=== PATIENT | female | born 1960 | race Caucasian/White ===

== ENCOUNTER 2017-03-29 15:24 | Emergency (ER) | payer OTHER ==
[2017-03-29 15:29] VITALS: BP 153/96; PULSE 90; TEMP 98.3; BMI 24.3
[2017-03-29] MEDS ORDERED: KETOROLAC TROMETHAMINE 60 MG/2 ML VIAL IM ONE (15:49)
[2017-03-29] MEDS ORDERED: KETOROLAC TROMETHAMINE 60 MG/2 ML VIAL ONE (15:51)
--- NOTE | 2017-03-29 16:04 | PDOC ---
History of Present Illness - General Chief Complaint: Sore Throat Stated Complaint: THROAT PAIN Time Seen by Provider: 03/29/17 15:32 History Source: Patient Exam Limitations: No Limitations - History of Present Illness Initial Comments: 03/29/17 15:50 Patient is a [56-year-old female, History of depression, presents to the ER with painful lesions to the posterior pharynx for 6 days. Was seen at the ENT was told it was viral. Concerned because it is persisting and not getting better, able to eat and drink. No fever. ] Past Medical History: [Denies]. Allergies: No known allergies Medications: [see medication list] Family History: Non-contributory Social History: Denies smoking, alcohol use, or IVDU Review of Systems GENERAL/CONSTITUTIONAL: [No fever or chills. No weakness. No weight change.] HEAD, EYES, EARS, NOSE AND THROAT: [No change in vision. No ear pain or discharge. Lesions to right lateral tongue and posterior pharynx] CARDIOVASCULAR: [No chest pain or shortness of breath.] RESPIRATORY: [No cough, wheezing, or hemoptysis.] GASTROINTESTINAL: [No nausea, vomiting, diarrhea or constipation. No rectal bleeding.] GENITOURINARY: [No dysuria, frequency, or change in urination.] MUSCULOSKELETAL: [No joint or muscle swelling or pain. No neck or back pain.] SKIN AND BREASTS: [No rash or easy bruising.] NEUROLOGIC: [No headache, vertigo, loss of consciousness, or loss of sensation.] PSYCHIATRIC: [No depression or anxiety.] ENDOCRINE: [No increased thirst. No abnormal weight change.] HEMATOLOGIC/LYMPHATIC: [No anemia, easy bleeding, or history of blood clots.] ALLERGIC/IMMUNOLOGIC: [No hives or skin allergy. No latex allergy.] Physical Exam: GENERAL: [The patient is awake, alert, and fully oriented, in no acute distress. ] HEAD: [Normal with no signs of trauma.] EYES: [Pupils equal, round and reactive to light, extraocular movements intact, sclera anicteric, conjunctiva clear.] ENT: [Ears normal, nares patent, oropharynx without erythema, there are vesicular lesions to left lateral soft palate and right lateral tongue. Moist mucous membranes. No uvula deviation] NECK: [Normal range of motion, supple without lymphadenopathy, JVD, or masses.] LUNGS: [Breath sounds equal, clear to auscultation bilaterally. No wheezes, and no crackles.] HEART: [Regular rate and rhythm, normal S1 and S2 without murmur, rub or gallop. ] ABDOMEN: [Soft, nontender, normoactive bowel sounds. No guarding, no rebound. No masses. No bruising or abrasions] MUSCULOSKELETAL: [Normal range of motion, no edema. No clubbing or cyanosis. No cords, erythema, or tenderness. No CVA Tenderness with fist.] NEUROLOGICAL: [Cranial nerves II through XII grossly intact. Normal speech, normal gait.] SKIN: [Warm, Dry, normal turgor, no rashes or lesions noted.] 03/29/17 15:53 Past History - Past Medical History Allergies/Adverse Reactions: Allergies Allergy/AdvReac Type Severity Reaction Status Date / Time No Known Drug Allergies Allergy Verified 03/29/17 15:29 Home Medications: Ambulatory Orders BUPROPion HCL "SR" [Wellbutrin Sr -] 150 mg PO DAILY 03/02/13 Fluoxetine HCl [Prozac -] 20 mg PO DAILY 03/02/13 Omeprazole [Prilosec (RX)] 20 mg PO DAILY 03/02/13 Mag Hydrox/Alh/Smc/Dpha/Lido [Magic Mouthwash *Sjr Formula* -] 5 ml MM Q6HPO # 100 ml 03/29/17 Anemia: No Asthma: No Cancer: No Cardiac Disorders: No CVA: No COPD: No CHF: No DVT: No Dementia: No Diabetes: No GI Disorders: Yes (GERD) Disorders: No HTN: No Hypercholesterolemia: No Liver Disease: No Psychiatric Problems: Yes (depression) Seizures: No Thyroid Disease: No - Surgical History Appendectomy: Yes - Suicide/Smoking/Psychosocial Hx Smoking Status: No Smoking History: Never smoked Have you smoked in the past 12 months: No Number of Cigarettes Smoked Daily: 0 Hx Alcohol Use: Yes (SOCIAL) Drug/Substance Use Hx: No Hx Substance Use Treatment: No *Physical Exam - Vital Signs Last Vital Signs Temp Pulse Resp BP Pulse Ox 98.3 F 90 20 153/96 98 03/29/17 15:26 03/29/17 15:26 03/29/17 15:26 03/29/17 15:26 03/29/17 15:26 Medical Decision Making - Medical Decision Making 03/29/17 16:04 A/P: Patient here for evaluation of painful lesions in mouth, clinical findings highly suspicious for viral illness, suspicious for coxsackie wrist. Patient states pain is 10 out of 10 given Toradol injection DC patient home, supportive care, Motrin for fever, magic mouthwash for comfort. Follow-up with the dental I discussed the physical exam findings, ancillary test results and final diagnoses with the patient. I answered all of the patient's questions. The patient was satisfied with the care received and felt comfortable with the discharge plan and treatment plan. The patient will call to arrange follow-up and will return to the Emergency Department with any new, persistent or worsening symptoms. *DC/Admit/Observation/Transfer Diagnosis at time of Disposition: Oral mucosal lesion - Discharge Dispostion Disposition: HOME Condition at time of disposition: Good Admit: No - Prescriptions Prescriptions: Mag Hydrox/Alh/Smc/Dpha/Lido [Magic Mouthwash *Sjr Formula* -] 5 ml MM Q6HPO # 100 ml - Referrals - Patient Instructions Additional Instructions: Warm saltwater gargles, recommend follow-up with dental for evaluation if symptoms persist If Fever, unable to drink, or any other concerns return to ER - Post Discharge Activity Forms/Work/School Notes: Back to Work
== END 2017-03-29 16:14 | disposition home or self-care (01) ==
LOC: JERFT 15:24
PROC: 3E0233Z Introduction of Anti-inflammatory into Muscle, Percutaneous Approach (ICD-10-PCS; principal; 2017-03-29)
DX: K13.79 Other lesions of oral mucosa (principal); F32.9 Major depressive disorder, single episode, unspecified; K21.9 Gastro-esophageal reflux disease without esophagitis
CPT/HCPCS: 99281-25

== ENCOUNTER 2018-04-15 01:03 | Inpatient (IN) | payer OTHER ==
--- NOTE | 2018-04-15 01:34 | PDOC ---
History of Present Illness - General Chief Complaint: Pain, Acute Stated Complaint: ABD PAIN Time Seen by Provider: 04/15/18 01:30 - History of Present Illness Initial Comments: 04/15/18 03:59 57 year old female with Abdominal pain and cramping x 2 days and no bm x 2 days. feels like " acid burning up." " i feel like everything is backing up." patient reports prior to this incident having regular BMs. Since patient felt constipated patient has increased fiber and fluid intake. unable to pass flatus. denies NV, urinary symptoms fever/ chills. Past History - Past Medical History Allergies/Adverse Reactions: Allergies Allergy/AdvReac Type Severity Reaction Status Date / Time No Known Drug Allergies Allergy Verified 04/15/18 01:35 Home Medications: Ambulatory Orders BUPROPion HCL "SR" [Wellbutrin Sr -] 150 mg PO DAILY 03/02/13 Fluoxetine HCl [Prozac -] 20 mg PO DAILY 03/02/13 Omeprazole [Prilosec (RX)] 20 mg PO DAILY 03/02/13 Anemia: No Asthma: No Cancer: No Cardiac Disorders: No CVA: No COPD: No CHF: No DVT: No Dementia: No Diabetes: No GI Disorders: Yes (GERD) Disorders: No HTN: No Hypercholesterolemia: No Liver Disease: No Psychiatric Problems: Yes (depression) Seizures: No Thyroid Disease: No - Surgical History Appendectomy: Yes - Suicide/Smoking/Psychosocial Hx Smoking Status: No Smoking History: Never smoked Have you smoked in the past 12 months: No Number of Cigarettes Smoked Daily: 0 Hx Alcohol Use: Yes (SOCIAL) Drug/Substance Use Hx: No Hx Substance Use Treatment: No Review of Systems - Review of Systems Able to Perform ROS?: Yes Is the patient limited [place] proficient: No Constitutional: No: Symptoms Reported, See HPI, Chills, Diaphoresis, Fever, Loss of Appetite, Malaise, Night Sweats, Weakness, Weight Stable, Unintentional Wgt. Loss, Unexplained wgt Loss, Other ABD/GI: Yes: Abdominal cramping (reports instermittent cramping) *Physical Exam - Vital Signs 04/15/18 05:04 Vital Signs Temperature 98.0 F 04/15/18 01:36 Pulse Rate 89 04/15/18 01:36 Respiratory Rate 19 04/15/18 01:36 Blood Pressure 145/96 12/06/18 01:36 O2 Sat by Pulse Oximetry (%) 97 04/15/18 01:46 - Physical Exam General Appearance: Yes: Appropriately Dressed Respiratory/Chest: positive: Lungs Clear, Normal Breath Sounds Cardiovascular: positive: Regular Rhythm, Regular Rate Gastrointestinal/Abdominal: positive: Tender (generalized), Soft, Decreased BS Extremity: positive: Normal Capillary Refill, Normal Inspection Integumentary: positive: Normal Color, Dry, Warm Neurologic: positive: Fully Oriented, Alert ED Treatment Course - LABORATORY CBC & Chemistry Diagram: 04/16/18 06:15 04/16/18 06:15 Progress Note - Progress Note Progress Note: A: abdominal pain r/o SBO P: labs CTAP: SBO Medical Decision Making - Medical Decision Making 04/15/18 06:09 Dr. abdullahi consulted.recommends admission. 04/15/18 06:30 patient refusing NG tube. will treat pain, IVF npo. 04/15/18 06:40 Patient refused NG inserted. doesn't want me to proceed until seen by surgeon. advised the importance of NGT. 04/15/18 07:00 patient pending sign out to hospitalist for admission. patient signed out ER ARVIND Barillas 04/19/18 21:30 *DC/Admit/Observation/Transfer Diagnosis at time of Disposition: Small bowel obstruction Abdominal pain Qualifiers: Abdominal location: generalized Qualified Code(s): R10.84 - Generalized abdominal pain - Discharge Dispostion Disposition: HOME Condition at time of disposition: Improved Decision to Admit order: Yes - Referrals - Patient Instructions - Post Discharge Activity
[2018-04-15] MEDS ORDERED: ONDANSETRON 4 MG/2 ML VIAL IVPUSH ONE (02:06)
[2018-04-15] MEDS ORDERED: SODIUM CHLORIDE 1,000 ML IV STA (02:06)
[2018-04-15] MEDS ORDERED: FAMOTIDINE 20 MG/50 ML IVPB 20 MG/50 ML MG IVPB ONE ×2 (02:27→02:28)
[2018-04-15] MEDS ORDERED: ONDANSETRON 4 MG/2 ML VIAL ONE (02:28)
[2018-04-15 02:33] LABS: BASO % 0.4 % (0-2.0); EOS % 1.8 % (0-4.5); HEMATOCRIT 39.5 % (32.4-45.2); HEMOGLOBIN 13.9 GM/dL (10.7-15.3); LYMPH % 17.2 % (8-40); MCH 30.2 pg (25.7-33.7); MCHC 35.2 g/dl (32.0-36.0); MEAN PLT VOLUME 7.3 fl (7.5-11.1); MONO % 9.1 % (3.8-10.2); NEUT % 71.5 % (42.8-82.8); PLATELET COUNT 262 K/MM3 (134-434); RDW 16.1 % (11.6-15.6)
--- NOTE | 2018-04-15 02:51 | PDOC ---
*Physical Exam - Vital Signs Last Vital Signs Temp Pulse Resp BP Pulse Ox 98.0 F 89 19 145/96 97 04/15/18 01:36 04/15/18 01:36 04/15/18 01:36 04/15/18 01:36 04/15/18 01:46 ED Treatment Course - LABORATORY CBC & Chemistry Diagram: 04/15/18 02:20 04/15/18 02:20 - Medications Given in the ED: ED Medications Discontinued Medications Generic Name Dose Route Start Last Admin Trade Name Freq PRN Reason Stop Dose Admin Ondansetron HCl 4 mg 04/15/18 02:06 04/15/18 02:45 Zofran Injection IVPUSH 04/15/18 02:07 4 mg ONCE ONE Administration Medical Decision Making - Medical Decision Making 04/15/18 06:17 57F with 2 days of worsening abd px, no bm, no flatus, worsening reflux, no vomiting eval for SBO CT AP with air/fluid levels, transition in RUQ, SBO Admit, ngt to wall suction, surgery consultation *DC/Admit/Observation/Transfer Diagnosis at time of Disposition: Abdominal pain, Small bowel obstruction - Referrals Referrals: Fabiola Bender MD [Primary Care Provider] - - Patient Instructions - Post Discharge Activity
[2018-04-15 02:56] LABS: ALK PHOS 67 U/L (45-117); ANION GAP 8 MMOL/L (8-16); BILIRUBIN,TOTAL 0.5 mg/dL (0.2-1); BLOOD UREA NITROGEN 11 mg/dL (7-18); CALCIUM 9.4 mg/dL (8.5-10.1); CHLORIDE 100 mmol/L (98-107); CO2 31 mmol/L (21-32); CREATININE 0.8 mg/dL (0.55-1.3); GLUCOSE,RANDOM 94 mg/dL (74-106); LIPASE 132 U/L (73-393); POTASSIUM 3.7 mmol/L (3.5-5.1); SGOT/AST 27 U/L (15-37); SGPT/ALT 30 U/L (13-61); SODIUM 139 mmol/L (136-145); TOT PROT 7.3 g/dl (6.4-8.2)
[2018-04-15 03:10] LABS: URINE APPEARANCE CLEAR; URINE BILIRUBIN NEGATIVE (<2.0 mg/dL); URINE COLOR LTYELLOW; URINE GLUCOSE (UA) NEGATIVE (NEGATIVE); URINE KETONE NEGATIVE (NEGATIVE); URINE LEUK ESTERASE 1+ (NEGATIVE); URINE NITRITE NEGATIVE (NEGATIVE); URINE PROTEIN NEGATIVE (NEGATIVE); URINE UROBILINOGEN NEGATIVE mg/dL (0.2-1.0)
[2018-04-15 03:17] LABS: EPI CELLS RARE /HPF (FEW)
[2018-04-15] MEDS ORDERED: ACETAMINOPHEN 1000 MG/100 ML VIAL (NON FORMULARY) IVPB ONE (03:17)
[2018-04-15] MEDS ORDERED: morphine CARPU-JECT 4 MG/1 ML DISP.SYRIN IVPUSH ONE ×2 (03:37→06:11)
[2018-04-15] MEDS ORDERED: METOCLOPRAMIDE HCL INJECTION 10 MG/2 ML VIAL IVPB ONE (03:37)
[2018-04-15] MEDS ORDERED: ACETAMINOPHEN INJECTION 100 ML IVPB ONE (03:40)
[2018-04-15] MEDS ORDERED: METOCLOPRAMIDE HCL INJECTION 10 MG/2 ML VIAL ONE (03:40)
[2018-04-15] MEDS ORDERED: morphine SULFATE 4 MG/ML VIAL ONE ×2 (03:40→06:16)
[2018-04-15] MEDS ORDERED: SODIUM CHLORIDE 1,000 ML IV SCH (06:00)
[2018-04-15] MEDS ORDERED: TETRACAINE/BENZOCAINE/BUTAMBEN 20 GM SPR TP ONE (06:20)
[2018-04-15] MEDS ORDERED: ONDANSETRON 4 MG/2 ML VIAL IVPUSH PRN (08:21)
[2018-04-15] MEDS ORDERED: morphine CARPU-JECT 2 MG/1 ML DISP.SYRIN IVPUSH PRN (08:21)
[2018-04-15] MEDS ORDERED: ACETAMINOPHEN 1000 MG/100 ML VIAL (NON FORMULARY) IVPB PRN (08:32)
--- NOTE | 2018-04-15 08:35 | HP ---
CHIEF COMPLAINT: abdominal pain PCP: Dr. Bender HISTORY OF PRESENT ILLNESS: This is 57 year old female with a history of GERD, depression, appendicitis, s/ p appendectomy, who presents with nausea, diffuse abdominal pain, and no bowel movements for the past two days. Patient states that yesterday morning she ate breakfast, which included pork, greens beans and pasta, after became full and was not able to eat lunch or dinner. She endorses daily bowel movements with a high fiber diet, fruits and water. She drinks two glasses of wine per night. Denies withdrawal history Denies vomiting, fever, chills, dysuria, melena. She has had multiple endoscopies that showed "stomach polyps". She has never had a colonoscopy. ER course was notable for: Abdominal CT with po /iv contrast evident for partial SBO; possible locatio right upper quadrant anteriorly, may be representing volvulus Recent Travel: no PAST MEDICAL HISTORY: GERD, Depression, stomach polyps, PAST SURGICAL HISTORY: appendectomy, urterine fibroid ligation, tonsillectomy Social History: lives alone at home; not ; no kids Smoking:no Alcohol:2 glasses of wine per night xmany years Drugs: no Family History: Allergies No Known Drug Allergies Allergy (Verified 04/15/18 01:35) HOME MEDICATIONS: Home Medications Medication Instructions Recorded BUPROPion HCL "SR" [Wellbutrin Sr 150 mg PO DAILY 03/02/13 -] Fluoxetine HCl [Prozac -] 20 mg PO DAILY 03/02/13 Omeprazole [Prilosec (RX)] 20 mg PO DAILY 03/02/13 REVIEW OF SYSTEMS CONSTITUTIONAL: Absent: fever, chills, diaphoresis, generalized weakness, malaise, loss of appetite, weight change HEENT: Absent: rhinorrhea, nasal congestion, throat pain, throat swelling, difficulty swallowing, mouth swelling, ear pain, eye pain, visual changes CARDIOVASCULAR: Absent: chest pain, syncope, palpitations, irregular heart rate, lightheadedness , peripheral edema RESPIRATORY: Absent: cough, shortness of breath, dyspnea with exertion, orthopnea, wheezing, stridor, hemoptysis GASTROINTESTINAL: Positive: abdominal pain,abdominal distension, nausea Absent: , vomiting, diarrhea, constipation, melena, hematochezia GENITOURINARY: Absent: dysuria, frequency, urgency, hesitancy, hematuria, flank pain, genital pain MUSCULOSKELETAL: Absent: myalgia, arthralgia, joint swelling, back pain, neck pain SKIN: Absent: rash, itching, pallor HEMATOLOGIC/IMMUNOLOGIC: Absent: easy bleeding, easy bruising, lymphadenopathy, frequent infections ENDOCRINE: Absent: unexplained weight gain, unexplained weight loss, heat intolerance, cold intolerance NEUROLOGIC: Absent: headache, focal weakness or paresthesias, dizziness, unsteady gait, seizure, mental status changes, bladder or bowel incontinence PSYCHIATRIC: Absent: anxiety, depression, suicidal or homicidal ideation, hallucinations. PHYSICAL EXAMINATION Vital Signs - 24 hr 04/15/18 04/15/18 04/15/18 01:36 01:46 06:03 Temperature 98.0 F Pulse Rate 89 Pulse Rate [ 61 Left] Respiratory 19 18 Rate Blood Pressure 145/96 Blood Pressure 117/76 [Right Arm] O2 Sat by Pulse 97 97 98 Oximetry (%) 04/15/18 04/15/18 08:20 08:23 Temperature 98.5 F Pulse Rate Pulse Rate [ 56 L Left] Respiratory 18 17 Rate Blood Pressure Blood Pressure 123/80 [Right Arm] O2 Sat by Pulse 98 99 Oximetry (%) GENERAL: Awake, alert, and fully oriented, in no acute distress. HEAD: Normal with no signs of trauma. EYES: Pupils equal, round and reactive to light, extraocular movements intact, sclera anicteric, conjunctiva clear. No lid lag. EARS, NOSE, THROAT: Ears normal, nares patent, oropharynx clear without exudates. Moist mucous membranes. NECK: Normal range of motion, supple without lymphadenopathy, JVD, or masses. LUNGS: Breath sounds equal, clear to auscultation bilaterally. No wheezes, and no crackles. No accessory muscle use. HEART: Regular rate and rhythm, normal S1 and S2 without murmur, rub or gallop. ABDOMEN: Soft, mild tenderness mid epigastrum, mild distention, minimal bowel sounds, no guarding, no rebound, no masses. No hepatomegaly or splenomegaly. MUSCULOSKELETAL: Normal range of motion at all joints. No bony deformities or tenderness. No CVA tenderness. UPPER EXTREMITIES: 2+ pulses, warm, well-perfused. No cyanosis. No clubbing. No peripheral edema. LOWER EXTREMITIES: 2+ pulses, warm, well-perfused. No calf tenderness. No peripheral edema. NEUROLOGICAL: Cranial nerves II-XII intact. Normal speech. PSYCHIATRIC: very anxious; SKIN: Warm, dry, normal turgor, no rashes or lesions noted, normal capillary refill. Laboratory Results - last 24 hr 04/15/18 04/15/18 04/15/18 02:20 02:20 02:20 WBC 7.0 RBC 4.60 Hgb 13.9 Hct 39.5 D MCV 86.0 MCH 30.2 MCHC 35.2 RDW 16.1 H Plt Count 262 MPV 7.3 L Absolute Neuts (auto) 5.0 Neutrophils % 71.5 Lymphocytes % 17.2 D Monocytes % 9.1 Eosinophils % 1.8 Basophils % 0.4 Nucleated RBC % 0 Sodium 139 Potassium 3.7 Chloride 100 Carbon Dioxide 31 Anion Gap 8 BUN 11 Creatinine 0.8 Creat Clearance w eGFR > 60 Random Glucose 94 Lactic Acid 1.0 Calcium 9.4 Total Bilirubin 0.5 AST 27 ALT 30 Alkaline Phosphatase 67 Total Protein 7.3 Albumin 4.0 Lipase 132 Urine Color Urine Appearance Urine pH Ur Specific [place] Urine Protein Urine Glucose (UA) Urine Ketones Urine Blood Urine Nitrite Urine Bilirubin Urine Urobilinogen Ur Leukocyte Esterase Urine WBC (Auto) Urine RBC (Auto) Ur Epithelial Cells 04/15/18 02:58 WBC RBC Hgb Hct MCV MCH MCHC RDW Plt Count MPV Absolute Neuts (auto) Neutrophils % Lymphocytes % Monocytes % Eosinophils % Basophils % Nucleated RBC % Sodium Potassium Chloride Carbon Dioxide Anion Gap BUN Creatinine Creat Clearance w eGFR Random Glucose Lactic Acid Calcium Total Bilirubin AST ALT Alkaline Phosphatase Total Protein Albumin Lipase Urine Color Ltyellow Urine Appearance Clear Urine pH 6.0 Ur Specific [place] 1.010 Urine Protein Negative Urine Glucose (UA) Negative Urine Ketones Negative Urine Blood Negative Urine Nitrite Negative Urine Bilirubin Negative Urine Urobilinogen Negative Ur Leukocyte Esterase 1+ H Urine WBC (Auto) 2 Urine RBC (Auto) <1 Ur Epithelial Cells Rare ASSESSMENT/PLAN: This is a 57 year old female with a history of GERD, depression, stomach polyps , appendectomy, who presents with nausea, abdominal distention, found to have partial small bowel obstruction. 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 - New Patient This patient is new to me today: Yes Date on this admission: 04/15/18 - Critical Care Critical Care patient: No
[2018-04-15] MEDS ORDERED: PANTOPRAZOLE SODIUM 40 MG/100 ML BAG IVPB ONE (08:39)
[2018-04-15] MEDS ORDERED: LACTATED RINGERS SOLUTION 1,000 ML/1,000 ML INFUS.BAG IV SCH (09:45)
--- NOTE | 2018-04-15 10:25 | PN ---
Teaching Attending Note Name of Resident: Delores Eden ATTENDING PHYSICIAN STATEMENT I saw and evaluated the patient. I reviewed the resident's note and discussed the case with the resident. I agree with the resident's findings and plan as documented. SUBJECTIVE: Seen and examined; please see the resident note for further historical details. This is a 57 y/o CF with a PMH significant for anxiety, GERD, appendectomy 3 yrs ago, presenting with 3 days no BM and abdominal discomfort found to have a SBO. States this feels like her normal reflux but more severe. Hasn't seen anyone else for this, nothing makes it better or worse. Afebrile, hemodynamically stable, no WBC count. Labs unremarkable. Imaging shows SBO with dilation of the stomach and proximal jejunal loops which suggest potential midgut volvulus. Diagnostic possibilities were indicated as an internal hernia vs. postoperative adhesions. Surgery called by ER. Admit to medicine on med surg floor. Of note, she initially refused NGT placement but when counseled by myself she was amiable to with anxiolytics. 10 sys ROS done and negative aside from HPI PMH and PSH reviewed FH asked and noncontributory Social history significant for depression/anxiety. No IVDU, etc. Medication list reviewed with resident; to be reconciled OBJECTIVE: VS, labs, imaging reviewed NAD, AAO, resting in med Tender to palpation in upper abdomen, minimal bowel sounds, no tympany, no hsm RRR s1/2 no mgr Lungs CTAB with sym exp CN2-12 wnl, no fnd NC AT EOMI PERRLA Imaging reviewed; SBO as per HPI; incidental finding of fibroid uterus Labs unremarkable EKG pending review ASSESSMENT AND PLAN: 57 y/o CF presenting with a SBO 1) Small Bowel Obstruction -Evidenced clinically and by imaging; surgery is consulted and ultimate management per them -NGT to LIWS, NPO -Pain control, nausea control -DDx includes potential issue from adhesions vs. internal hernia. 2) Fibroid Uterus -Followup OP with meat butcher 3) Depression -Hold PO meds; resume when clinically appropriate. 4) GERD -Changing PO omeprazole to IV protonix, change back when tolerating PO FENA -LR@100 -PRN replete -NPO -As tolerated Consults: Surgery Full Code
--- NOTE | 2018-04-15 10:27 | EKG ---
Test Reason : Blood Pressure : / mmHG Vent. Rate : 064 BPM Atrial Rate : 064 BPM P-R Int : 152 ms QRS Dur : 088 ms QT Int : 450 ms P-R-T Axes : 056 022 056 degrees QTc Int : 464 ms NORMAL SINUS RHYTHM NORMAL ECG WHEN COMPARED WITH ECG OF 08-AUG-2014 02:18, NO SIGNIFICANT CHANGE WAS FOUND Confirmed by NANCI JAMES MD ([id number]) on 04/15/2018 10:26:53 AM Referred By: Confirmed By:NANCI JAMES MD
--- NOTE | 2018-04-15 12:36 | PN ---
Progress Note (short form) - Note Progress Note: surgery pt seen and examined. full consult dictated 57f with previous appendectomy, presents with abd distension and colicky pain after eating pork, greenbeans, and prunes. wbc normal. ct shows dilated mid jejunal loops with non collapsed colon. Pt admitted for sbo and refused ngt placement. pt currently states her pain has resolved with some flatus. on exam the abd is soft, nt, minimal distension Plan- possible resolving psbo. keep npo today. kub to follow migration of contrast. possible liquids tomorrow and discharge on liquids until Thursday if remains well. Pt not interested in surgical exploration and no signs of bowel compromise.
--- NOTE | 2018-04-15 13:18 | CONS ---
DATE OF CONSULTATION: 04/15/2018 REASON FOR CONSULTATION: Small-bowel obstruction. This is an emergency room consultation requested by the emergency room physician. The patient was subsequently admitted to the medical floor, is being seen and examined there. BRIEF HISTORY: This is a 57-year-old female with previous laparoscopic appendectomy, presents to [facility] emergency room complaining of colicky abdominal pain and bloating after eating pork, green beans, and a large amount of prunes. She states she did this to help with what she felt was constipation. She had a CAT scan of her abdomen and pelvis with oral contrast, which showed some dilated loops of jejunum in the right upper quadrant. The condenser setter opined that this could be a midgut volvulus. He also opined that this could be a partial bowel obstruction because air was noted in the colon. The patient refused nasogastric tube decompression. She was admitted to the medical floor, where her pain has since resolved and she now admits to flatus. Her past medical history is significant for gastroesophageal reflux disease and depression. Her past surgical history is as in [facility]. In addition, she has had some uterine fibroids ablated and a tonsillectomy. Social history is positive for occasional alcohol consumption, negative for tobacco. She has no known drug allergies. Her home medications include Wellbutrin, Prozac, and Prilosec. Her family history is noncontributory. REVIEW OF SYSTEMS: General: Denies fatigue or malaise. Cardiac: Denies chest pain or palpitations. Respiratory: No shortness of breath or wheeze. Gastrointestinal: As in HPI. Denies vomiting. Denies recent weight loss. Genitourinary: Denies dysuria. Musculoskeletal: Denies joint pain, joint swelling. Psychiatric: Denies anxiety, depression, or hearing voices. PHYSICAL EXAMINATION: General: This is a well-developed, well-nourished 57-year-old female in no distress. Vital Signs: She is afebrile. Her vital signs are stable. HEENT: Her head is normocephalic. Sclerae are anicteric. Neck: Supple. Chest: Clear. Abdomen: Soft, nontender, with minimal distention, and well-healed laparoscopic scars without obvious hernia. Extremities: Her extremities have no edema. On review of her laboratory, white blood cell count is normal at 7.0. There is no shift. Her chemistries are unremarkable without evidence of acidosis. Her urinalysis has 1+ leukocyte esterase, 2 white blood cells. ASSESSMENT: A 57-year-old female with depression, who was eating a large amount of fiber and had developed abdominal pain and distention. She had a CAT scan suggesting a possible partial bowel obstruction. Clinically I doubt this is an internal hernia or a midgut volvulus. Possibly this is a partial obstruction from adhesions, which is improving. She currently has no pain and she is passing gas. Though the patient would best be treated with a nasogastric tube, she refused one. At this point, I would leave it out, keep her n.p.o. I will get a repeat x-ray to evaluate the migration of contrast, which I suspect will be now visible within the colon. If she remains well tomorrow, she can start on a liquid diet, then she can likely be discharged home if she tolerates, to stay on liquids until Thursday. Currently the patient is not interested in surgical exploration and there is no evidence of bowel compromise. DO ADDISON AVALOS/[id number]
[2018-04-15] MEDS: HEPARIN NA (PORCINE) 5,000 UNITS/ML 1ML VIAL SQ SCH ×2 (15:14→22:17)
[2018-04-15 15:43] VITALS: BMI 27.1
[2018-04-15] MEDS ORDERED: FLU VACCINE QUAD 60 MCG/0.5 ML (MDV 18-19) IM ONE (15:44)
[2018-04-16] MEDS ORDERED: MORPHINE SULFATE 2 MG/ML VIAL IVPUSH PRN (05:26)
[2018-04-16] MEDS: HEPARIN NA (PORCINE) 5,000 UNITS/ML 1ML VIAL SQ SCH ×2 (06:40→14:45)
[2018-04-16 08:25] LABS: BASO % 0.6 % (0-2.0); EOS % 3.7 % (0-4.5); HEMATOCRIT 39.6 % (32.4-45.2); HEMOGLOBIN 12.6 GM/dL (10.7-15.3); LYMPH % 19.7 % (8-40); MCH 28.3 pg (25.7-33.7); MCHC 31.8 g/dl (32.0-36.0); MEAN CELL VOLUME 88.8 fl (80-96); MEAN PLT VOLUME 7.8 fl (7.5-11.1); MONO % 10.4 % (3.8-10.2); NEUT % 65.6 % (42.8-82.8); PLATELET COUNT 194 K/MM3 (134-434); RBC 4.46 M/mm3 (3.60-5.2); RDW 16.1 % (11.6-15.6); WHITE BLOOD COUNT 4.1 K/mm3 (4.0-10.0)
[2018-04-16 08:38] LABS: ANION GAP 10 MMOL/L (8-16); BLOOD UREA NITROGEN 8 mg/dL (7-18); CALCIUM 8.1 mg/dL (8.5-10.1); CHLORIDE 106 mmol/L (98-107); CO2 25 mmol/L (21-32); CREATININE 0.7 mg/dL (0.55-1.3); GLUCOSE,RANDOM 68 mg/dL (74-106); MAGNESIUM 1.9 mg/dL (1.8-2.4); PHOSPHOROUS 3.3 mg/dL (2.5-4.9); POTASSIUM 3.8 mmol/L (3.5-5.1); SODIUM 141 mmol/L (136-145)
[2018-04-16] MEDS ORDERED: DEXTROSE 5%-NORMAL SALINE 1,000 ML IV SCH (09:00)
[2018-04-16 09:02] LABS: INR 0.98 (0.83-1.09); PROTHROMBIN TIME (PATIENT) 11.6 SEC (9.7-13.0)
[2018-04-16] MEDS ORDERED: PANTOPRAZOLE SODIUM 40 MG VIAL IVPUSH SCH (10:00)
--- NOTE | 2018-04-16 11:47 | EKG ---
Test Reason : Blood Pressure : / mmHG Vent. Rate : 065 BPM Atrial Rate : 065 BPM P-R Int : 138 ms QRS Dur : 088 ms QT Int : 424 ms P-R-T Axes : 070 075 076 degrees QTc Int : 440 ms NORMAL SINUS RHYTHM NORMAL ECG WHEN COMPARED WITH ECG OF 15-APR-2018 06:25, NO SIGNIFICANT CHANGE WAS FOUND Confirmed by JHON MARMOLEJO MD ([id number]) on 04/16/2018 11:47:09 AM Referred By: Confirmed By:JHON MARMOLEJO MD
[2018-04-16 12:35] VITALS: BP 131/72; PULSE 72; TEMP 98
--- NOTE | 2018-04-16 12:43 | DS ---
Physical Exam: SUBJECTIVE: Patient seen and examined at bedside. Eating full liquid breakfast. No complaints. Is passing flatus and has had a bowel movement. OBJECTIVE: Vital Signs Period Temp Pulse Resp BP Sys/Castellano Pulse Ox Last 24 Hr 97.6 F-98.3 F 61-100 16-18 114-149/63-74 99-99 PHYSICAL EXAM GENERAL: AAOx3 Pleasant eating full liquid breakfast HEAD: Normal with no signs of trauma. EYES: EOMI ENT: MMM NECK: Supple LUNGS: CTA B/L No wheezing rales or rhonchi HEART: RRR No MRG appreciated ABDOMEN: Bowel sounds postive, Nontender and nondistended. EXTREMITIES: No CCE NEUROLOGICAL: No gross neuro def appreciated PSYCH: Normal mood, normal affect. SKIN: Warm, dry, normal turgor, no rashes or lesions noted. LABS Laboratory Results - last 24 hr 04/16/18 04/16/18 04/16/18 06:15 06:15 06:15 WBC 4.1 RBC 4.46 Hgb 12.6 Hct 39.6 MCV 88.8 MCH 28.3 MCHC 31.8 L RDW 16.1 H Plt Count 194 D MPV 7.8 Absolute Neuts (auto) 2.7 Neutrophils % 65.6 Lymphocytes % 19.7 Monocytes % 10.4 H Eosinophils % 3.7 D Basophils % 0.6 Nucleated RBC % 0 PT with INR 11.60 INR 0.98 Sodium 141 Potassium 3.8 Chloride 106 Carbon Dioxide 25 Anion Gap 10 BUN 8 Creatinine 0.7 Creat Clearance w eGFR > 60 POC Glucometer Random Glucose 68 L Calcium 8.1 L Phosphorus 3.3 Magnesium 1.9 04/16/18 10:15 WBC RBC Hgb Hct MCV MCH MCHC RDW Plt Count MPV Absolute Neuts (auto) Neutrophils % Lymphocytes % Monocytes % Eosinophils % Basophils % Nucleated RBC % PT with INR INR Sodium Potassium Chloride Carbon Dioxide Anion Gap BUN Creatinine Creat Clearance w eGFR POC Glucometer 139 Random Glucose Calcium Phosphorus Magnesium HOSPITAL COURSE: Date of Admission:04/15/18 Pt presented to hospital with nausea, diffuse abdominal pain, and lack of bowel movement for 2 days. Pt underwent a CTAP which revealed a small bowel obstruction with dilation of the stomach and proximal jejunal loops. Please see report for further details. Pt also underwent an abdominal xray which revealed progression of iv contrast from the upper G.I tract to the colon, indicating that a true obstruction was not present. Please see report for further details. A third xray was performed which also confirmed absence of intestinal obstruction. Pt was initially NPO and placed on IV fluids. Pt refused NGT placement. Seen by surgery and started on full liquid diet. Date of Discharge: 04/16/18 Minutes to complete discharge: 35 Discharge Summary Reason For Visit: SMALL BOWEL OBSTRUCTION Current Active Problems Abdominal pain (Acute) Small bowel obstruction (Acute) Condition: Improved - Instructions Diet, Activity, Other Instructions: You were admitted to the hospital for a possible Small Bowel Obstruction. Please remain on a full liquid diet until ThursdayApril 19. Please follow up with your primary care physician in 1 week Please follow up with the Surgeon in 1 week, Dr Rincon. Please resume your home medications as prescribed. If you begin to experience shortness of breath, chest pain, worsening abdominal pain, nausea, or vomiting, please return to the emergency department and call 911 immediately. Referrals: Fabiola Bender MD [Primary Care Provider] - 1 Week Fredis Rincon MD [Staff Physician] - 1 Week Disposition: HOME - Home Medications Comprehensive Discharge Medication List: Ambulatory Orders BUPROPion HCL "SR" [Wellbutrin Sr -] 150 mg PO DAILY 03/02/13 Fluoxetine HCl [Prozac -] 20 mg PO DAILY 03/02/13 Omeprazole [Prilosec (RX)] 20 mg PO DAILY 03/02/13 This patient is new to me today: Yes Date on this admission: 04/16/18 Emergency Visit: Yes ED Registration Date: 04/15/18 Care time: The patient presented to the Emergency Department on the above date and was hospitalized for further evaluation of their emergent condition. Critical Care patient: No - Discharge Referral Referred to [facility] No
--- NOTE | 2018-04-16 15:16 | PN ---
Teaching Attending Note Name of Resident: Archie Aguilar ATTENDING PHYSICIAN STATEMENT I saw and evaluated the patient. I reviewed the resident's note and discussed the case with the resident. I agree with the resident's findings and plan as documented with exceptions below. SUBJECTIVE: Patient seen and examined. No nausea, vomiting, abdominal pain. Had 2 BM yesterday. Tolerating diet well. OBJECTIVE: Vital Signs Period Temp Pulse Resp BP Sys/Castellano Pulse Ox Last 24 Hr 97.6 F-98.3 F 61-100 16-18 114-149/63-74 99-99 Intake & Output 04/13/18 04/14/18 04/15/18 04/16/18 23:59 23:59 23:59 23:59 Intake Total 280 Output Total 3 Balance -3 280 Weight 163 lb General: ambulating in hallway in no acute distress Abdomen:Soft, positive good bowel sounds, Non tender throughout, minimal distension, no voluntary or involuntary guarding or rigidity Extremities: no edema Home Medications Medication Instructions Recorded BUPROPion HCL "SR" [Wellbutrin Sr 150 mg PO DAILY 03/02/13 -] Fluoxetine HCl [Prozac -] 20 mg PO DAILY 03/02/13 Omeprazole [Prilosec (RX)] 20 mg PO DAILY 03/02/13 Laboratory Results - last 24 hr 04/16/18 04/16/18 04/16/18 06:15 06:15 06:15 WBC 4.1 RBC 4.46 Hgb 12.6 Hct 39.6 MCV 88.8 MCH 28.3 MCHC 31.8 L RDW 16.1 H Plt Count 194 D MPV 7.8 Absolute Neuts (auto) 2.7 Neutrophils % 65.6 Lymphocytes % 19.7 Monocytes % 10.4 H Eosinophils % 3.7 D Basophils % 0.6 Nucleated RBC % 0 PT with INR 11.60 INR 0.98 Sodium 141 Potassium 3.8 Chloride 106 Carbon Dioxide 25 Anion Gap 10 BUN 8 Creatinine 0.7 Creat Clearance w eGFR > 60 POC Glucometer Random Glucose 68 L Calcium 8.1 L Phosphorus 3.3 Magnesium 1.9 04/16/18 10:15 WBC RBC Hgb Hct MCV MCH MCHC RDW Plt Count MPV Absolute Neuts (auto) Neutrophils % Lymphocytes % Monocytes % Eosinophils % Basophils % Nucleated RBC % PT with INR INR Sodium Potassium Chloride Carbon Dioxide Anion Gap BUN Creatinine Creat Clearance w eGFR POC Glucometer 139 Random Glucose Calcium Phosphorus Magnesium Abdominal xray - no evidence of obstruction ASSESSMENT AND PLAN: 57 yof with prior abdominal surgery here with SBO -SBO, resolved Plan: tolerating diet well, 2 BM overnight Abdominal xray with resolved obstruction. Patient advised to continue liquid diet till Thursday, then resume as tolerated, Patient relays understanding and agrees to comply. D/c home today.
== END 2018-04-16 15:02 | disposition home or self-care (01) | DRG 390 ==
LOC: JER 01:03 → JERBED 07:00 → J8W 09:53
PROVIDERS: ADMIT Internal Medicine; ATTEND Hospitalist
DX: K56.600 Partial intestinal obstruction, unspecified as to cause (principal); D25.9 Leiomyoma of uterus, unspecified; K21.9 Gastro-esophageal reflux disease without esophagitis; F32.9 Major depressive disorder, single episode, unspecified; I45.81 Long QT syndrome; F10.10 Alcohol abuse, uncomplicated
CPT/HCPCS: 36415; 74018-TC-FY; 74019-TC-FY; 74177-TC; 80048; 80053; 81003; 81015; 82962; 83605; 83690; 83735; 84100; 85025; 85610; 87086; 90688; 93005; 93010; 99285-25; G0008; J0131; J1644; J7030

== ENCOUNTER 2021-11-13 17:18 | Emergency (ER) | payer BC, OTHER ==
[2021-11-13 17:25] VITALS: BP 121/71; PULSE 101; TEMP 97.6; BMI 25.7
== END 2021-11-13 19:48 | disposition home or self-care (01) ==
LOC: JERFT 17:18
DX: L30.9 Dermatitis, unspecified (principal)
CPT/HCPCS: 99283-25

== ENCOUNTER 2022-12-05 10:47 | Day surgery (SDC) | payer BC, OTHER ==
[2022-12-04 12:23] VITALS: BMI 22.8
[2022-12-05 12:01] VITALS: TEMP 97.5
[2022-12-05 12:27] VITALS: BP 110/63; PULSE 74; RESP 18
== END 2022-12-05 12:34 | disposition home or self-care (01) ==
LOC: FASU-ENDO 10:47
PROVIDERS: ATTEND Internal Medicine Gastroenterology
PROC: 0DBN8ZX Excision of Sigmoid Colon, Via Natural or Artificial Opening Endoscopic, Diagnostic (ICD-10-PCS; 2022-12-05)
PROC: 0DBP8ZX Excision of Rectum, Via Natural or Artificial Opening Endoscopic, Diagnostic (ICD-10-PCS; 2022-12-05)
PROC: 0DBM8ZX Excision of Descending Colon, Via Natural or Artificial Opening Endoscopic, Diagnostic (ICD-10-PCS; 2022-12-05)
PROC: 0DBK8ZX Excision of Ascending Colon, Via Natural or Artificial Opening Endoscopic, Diagnostic (ICD-10-PCS; principal; 2022-12-05 11:31)
DX: K52.832 Lymphocytic colitis (principal); K62.89 Other specified diseases of anus and rectum
CPT/HCPCS: 88305-TC

== ENCOUNTER 2023-03-13 09:27 | Day surgery (SDC) | payer BC, OTHER ==
[2023-03-09 16:49] VITALS: BMI 22.7
[2023-03-13 09:44] VITALS: RESP 18
[2023-03-13 11:35] VITALS: TEMP 97.8
[2023-03-13 11:54] VITALS: BP 129/74; PULSE 80
== END 2023-03-13 12:03 | disposition home or self-care (01) ==
LOC: FASU-ENDO 09:27
PROVIDERS: ATTEND Internal Medicine Gastroenterology
PROC: 0DB78ZX Excision of Stomach, Pylorus, Via Natural or Artificial Opening Endoscopic, Diagnostic (ICD-10-PCS; 2023-03-13)
PROC: 0DB68ZX Excision of Stomach, Via Natural or Artificial Opening Endoscopic, Diagnostic (ICD-10-PCS; 2023-03-13)
PROC: 0DB48ZX Excision of Esophagogastric Junction, Via Natural or Artificial Opening Endoscopic, Diagnostic (ICD-10-PCS; 2023-03-13)
PROC: 0DB98ZX Excision of Duodenum, Via Natural or Artificial Opening Endoscopic, Diagnostic (ICD-10-PCS; principal; 2023-03-13 11:04)
DX: K29.50 Unspecified chronic gastritis without bleeding (principal); K31.7 Polyp of stomach and duodenum; R10.13 Epigastric pain; K20.90 Esophagitis, unspecified without bleeding
CPT/HCPCS: 88305-TC; 88342-TC